=== PATIENT | male | born 1980 | race Caucasian/White ===

== ENCOUNTER 2016-09-16 22:02 | Emergency (ER) | payer BC ==
[~2016-09-16] VITALS: Ht 175.3 cm; Wt 98.4 kg
[2016-09-16 22:05] VITALS: Ht 175.3 cm; Wt 98.4 kg
[2016-09-16] MEDS ORDERED: HYDROMORPHONE 2mg/ml INJECTION IV ONE (22:15)
[2016-09-16] MEDS ORDERED: KETOROLAC 30mg/ml INJECTION IV ONE (22:15)
[2016-09-16] MEDS ORDERED: METOCLOPRAMIDE 10mg/2ml INJECTION IV ONE (22:15)
--- NOTE | 2016-09-16 22:16 | ERPDOC ---
Departure Disposition Decision Date: Sep 16, 2016 Disposition Decision Time: 23:10 Disposition: 01 DISCHARGED HOME, SELF-CARE Impression Impression Impression: Primary Impression: Ureteral stone Severity: Severe Condition: Improved Seen By: Physician only Referrals: MICHAEL CABALLERO MD (Family) Patient Instructions: Kidney Stones (ED) Problems/Meds/Labs Reviewed?: Yes Medications reviewed and manag: Yes Additional Instructions: Take ibuprofen up to 800 milligrams every 6-8 hours baseline pain control Reglan 10 mg one tablet every 6-8 hours Cardale 5 mg one to 2 tablets every 6-8 hours as needed for pain Follow up with Dr. Caballero if not improving in 3 days, return to ER for any significant worsening Follow up care ordered?: Yes Mental Status: Alert Scripts Hydrocodone/Acetaminophen (Cardale 5-325 Tablet) 5-325 Tablet 1-2 TAB PO QID Y for PAIN, #30 Prov: MARYELLEN CONNOR MD 09/16/16 Metoclopramide HCl (Reglan) 10 Mg Tablet 10 MG PO QID Y for n/flank pain, #30 TAB 0 Refills Prov: MARYELLEN CONNOR MD 09/16/16 HPI - Male General Chief Complaint: Flank Pain Stated Complaint: R SIDE PAIN Time Seen by Provider: 22:07 Source: patient Exam Limitations: no limitations HPI - Male Initial Comments Sudden onset right flank pain earlier today. Same as normal renal stones, but he normally passes them quickly. This time the pain has been persisting much longer than usual. No fever, mild nausea, and sever right flank pain. Duration: 6-12 hrs Severity/Quality: sharpness, stabbing Location: right flank Hx of Similar Symptoms: Yes Allergies: Coded Allergies: No Known Drug Allergies (Unverified Adverse Reaction, Unknown, 05/27/08) Past History Past Medical History Male: kidney stones Surgical History Denies Surgeries Social History Smoking Status: Never smoker Does patient use chewing tobac: No Second Hand Exposure: No Record Review Pertinent history updated: Yes Review of Systems Constitutional Constitutional: DENIES: appetite decrease, appetite increase, chills, dizziness , fever, weakness ENMT Ears: DENIES: pain Hearing: DENIES: hearing loss, tinnitus Balance: DENIES: vertigo Mouth/Throat: DENIES: change in swallowing, change in voice, hoarsness, painful swallowing, sore throat Cardiovascular Cardiac: DENIES: chest pain, dyspnea on exertion Rhythm/Rate: DENIES: irregular beat, palpitations, tachycardia Vascular: DENIES: pedal edema Pulmonary Respiratory: DENIES: cough, dyspnea, pleuritic chest pain GI Upper Abdomen: nausea, pain, DENIES: dysphagia, food intolerances, heartburn/ indigestion, hematemesis, vomiting Lower Abdomen: pain, DENIES: blood in stool, dexter-colored stools, constipation , diarrhea, melena, painful BM General: DENIES: burning, dysuria, frequency, pain, urgency Musculoskeletal General: DENIES: cramps, joint pain, joint swelling, pain, weakness Integumentary Skin: DENIES: rash, sores Neurological General: DENIES: headache, numbness, tingling, vertigo, weakness Psychiatric Psychiatric: DENIES: anxiety, depression, nervousness Physical Exam General General Nourishment: well nourished, well developed, appears stated age General Body Habitus: well groomed Vitals and Pain First Documented Vital Signs Date Time Temp Pulse Resp B/P Pulse Ox O2 Delivery O2 Flow Rate FiO2 09/16/16 22:05 99.5 86 22 133/74 98 Room Air Weight: Kilograms: Height (feet): Height (inches): Triage Pain Scale: RN VS reviewed by Provider: Yes Comments restless and cannot find position of comfort Normal Exams: Head: Normocephalic w/o trauma Eyes: Pupils are PERRLA w/ EOMI, No scleral icterus, irritation, or foreign bodies noted ENMT: No facial trauma, nasal exudates, pharyngeal erythema, or exudates are noted Neck: Full range of motion, without adenopathy, JVD, bruits or thyromegaly Chest/Resp: Clear all gibbs, with good airflow, and symmetry bilaterally CV: Regular rate and rhythm, without murmur or gallop, Pulses 2+ all extremities, capillary refill, <2 seconds all ext., no pedal edema noted Lymphatic: No lymphadenopathy, or lymphedema noted Musculoskeletal: No tenderness, or deformity noted, good range of motion, all extremities Integumentary: No rashes, hives, or bruising noted, hair and nails, without abnormality Neurologic: Patient is alert, and oriented, cranial nerves, motor/sensory/ cerebellar, exams w/o gross deficits, to observation Psychiatric: Patient exhibits, appropriate attention, emotion and affect Abdomen (brief) Abdominal Brief: FOUND: bowel normo active x4, soft, tender (moderate right flank tenderness. ) Progress Results/Orders Orders Procedure Category Date Status Time Iv Lock (Ed Only) EDM 09/16/16 Transmitted 22:12 Ketorolac (Toradol) PHA 09/16/16 Complete 22:15 Metoclopramide PHA 09/16/16 Complete (Reglan Inj) 22:15 Morphine Sulfate PHA 09/16/16 Complete (Morphine) 22:30 UA, LAB 09/16/16 Complete Dip&Micro(Complete) & 22:49 Metoclopramide PHA 09/16/16 Transmitted (Reglan) 23:15 Hydrocodone/Apap PHA 09/16/16 Transmitted 5/325 Prepack (Cardale 5 23:15 Lab Results Laboratory Tests Test 09/16/16 22:49 Urine Collection Type Cleancatch-midstream Urine Color Yellow Urine Turbidity Clear Urine pH 5.0 Urine Specific [place]ckley 1.020 Urine Protein Negative Urine Glucose (UA) Negative Urine Ketones Trace Urine Blood 1+ Urine Nitrite Negative Urine Bilirubin Negative Urine Urobilinogen 0.2EU/DL Urine Leukocyte Esterase Negative Urine RBC 1-3/HPF Urine WBC None seen/HPF Urine Bacteria None seen Urine Culture Indicated Cult not indicated Medications Current ED Medications Ketorolac Tromethamine (Toradol) 30 mg O ONCE IV Last administered on 22:31; Start 09/16/16 at 22:15; Stop 09/16/16 at 22:16; Status DC Metoclopramide HCl (REGLAN Inj) 10 mg O ONCE IV Last administered on 22:33; Start 09/16/16 at 22:15; Stop 09/16/16 at 22:16; Status DC Hydromorphone HCl (Dilaudid) 0.5 mg O ONCE IV ; Start 09/16/16 at 22:15; Stop 09/16/16 at 22:16; Status Cancel Morphine Sulfate (Morphine) 4 mg O ONCE IV Last administered on 09/16/16 22: 31; Start 09/16/16 at 22:30; Stop 09/16/16 at 22:31; Status DC Metoclopramide HCl (Reglan) 30 mg O ONCE PO ; Start 09/16/16 at 23:15; Stop 4/ 22/17 at 23:16 Acetaminophen/ Hydrocodone Bitart (NORCO 5 (PrePack)) 1 pack O ONCE SENT HOME ; Start 09/16/16 at 23:15; Stop 09/16/16 at 23:16 Progress Progress Patient given Toradol 30 mg, Reglan 10 mg, and Dilaudid 0.5 mg IV - to relief UA - normal amount of blood only Patient dispensed Reglan 10 mg 3 tablets, Cardale pack, prescriptions for the same MARYELLEN CONNOR MD Sep 16, 2016 22:16
[2016-09-16] MEDS ORDERED: LISI-625 PO (22:19)
[2016-09-16] MEDS ORDERED: MORPHINE SULFATE 4 MG SYRINGE IV ONE (22:30)
[2016-09-16 22:54] LABS: BLOOD, URINE 1+ (NEGATIVE); COLOR,URINE YELLOW (YELLOW); LEUKOCYTE ESTERASE ,URINE NEGATIVE (NEGATIVE); NITRITE,URINE NEGATIVE (NEGATIVE); UROBILINOGEN,URINE 0.2 EU/DL (NORMAL)
[2016-09-16 23:03] LABS: BACTERIA,URINE NONE SEEN (NEGATIVE); WBC,URINE NONE SEEN /HPF (0-5)
[2016-09-16] MEDS ORDERED: METO-230 PO (23:13)
[2016-09-16] MEDS ORDERED: HYDR-4246 PO (23:13)
[2016-09-16] MEDS ORDERED: HYDROCODONE/APAP 5/325 (PrePack) SENT HOME ONE (23:15)
[2016-09-16 23:26] VITALS: BP 124/74; PULSE 86; RESP 18; TEMP 98.5; O2SAT 98
--- NOTE | 2016-09-16 23:26 | NUR ---
DEPART PT GIVEN DI FOR KIDNEY STONES, NORCO, REGLAN, F/U. PREPAK/RX PROVIDED FOR NORCO AND REGLAN. PT VERBALIZES UNDERSTANDING OF DI, MEDS, AND F/U. QUESTIONS ASKED/ANSWERED - DENIES FURTHER QUESTIONS/NEEDS AT THIS TIME. PT REPORTS IMPROVEMENT IN PAIN AT THIS TIME. PERSONAL BELONGINGS GATHERED. IV SITE REMOVED. PT ESCORTED/AMBULATED TO ED EXIT - GAIT STABLE, NO SIGN OF DISTRESS AT THIS TIME.
== END 2016-09-16 23:26 | disposition home or self-care (01) ==
LOC: ED 22:02
DX: N20.1 Calculus of ureter (principal); Z87.442 Personal history of urinary calculi
CPT/HCPCS: 81001; 96374; 96375; 99284; J1885; J2765

== ENCOUNTER → 2016-09-18 | Outpatient (CLI) | payer BC ==
[~2016-09-18] MED LIST: HYDR-4246 PO; LISI-625 PO; METO-230 PO; OXYC1TAB11 PO; TAMS-1 PO
--- NOTE | 2016-09-18 17:01 | DI ---
Indication: ITS.REASON: N20.0 CALCULUS OF KIDNEY PROCEDURE: CT RENAL W/O CONTRAST: Encounter: Initial Comparison: 06/08/2010 Findings: The included portions of the lung bases demonstrate no focal opacity. No pleural effusion. Heart size is normal. There is moderate fatty infiltration of the liver. The spleen is not definitely enlarged. There is some fatty sparing in the central aspect of the caudate lobe. There is also some fatty sparing adjacent to the gallbladder fossa. The gallbladder is small and contracted. The adrenal glands are normal. The pancreas is homogeneous in density and uniform in contour. The right kidney is mildly hydronephrotic. There is a stone in the proximal right ureter at about the level of the UPJ that measures probably 7.3 mm. There is mild hydronephrosis of the right kidney. There are a few small nonobstructing urinary calculi in the left kidney in the upper pole. The abdominal aorta is nonaneurysmal without significant calcific atherosclerotic disease. Pelvis: No evidence for distal ureteral calculus. The urinary bladder is not distended. A normal appendix is not identified with certainty. No definite bony destructive process. IMPRESSION: 7.3 mm right proximal ureteric calculus with mild hydronephrosis. Tiny intrarenal renal calculus in the upper pole of the right kidney. No definite left-sided nephrolithiasis. Moderate steatosis of the liver parenchyma, similar to prior exam. .
== END ==
LOC: IMA 12:50
PROVIDERS: ATTEND Family Medicine
DX: N13.2 Hydronephrosis with renal and ureteral calculous obstruction (principal); K76.0 Fatty (change of) liver, not elsewhere classified

== ENCOUNTER 2016-09-19 02:00 | Emergency (ER) | payer BC ==
[~2016-09-19] VITALS: Ht 175.3 cm; Wt 96.9 kg
[~2016-09-19 02:00] MED LIST changes: -OXYC1TAB11 PO; -TAMS-1 PO
[2016-09-19 02:05] VITALS: Ht 175.3 cm; Wt 96.9 kg
--- OUTSIDE RECORDS SUMMARY | 2016-09-19 02:05 | XMS REPORT | Continuity of Care Document ---
Author Author [facility] Organization [facility] Address Unknown Phone Unavailable Support Name Relationship Address Phone MARYELLEN CONNOR MD Caregiver [address] [place] [address] Unavailable MICHAEL FELIX MD Caregiver [address] [place] [address] [place] [address] Unavailable TANVI WALL Next Of Kin [address] [place] [address] Insurance Providers Guarantor Nelson Wall Address [address] [place] [id number] Payer [facility] Policy Number [id number] Subscriber's Name Nelson Wall Relationship 18 Self Group Number [id number] Chief Complaint and Reason for Visit Chief Complaint Flank Pain Reason for Visit [id number] Problems Past Problems Medical Problem Onset Date Ureteral stone Unknown Medications Current Home Medications Medication Dose Units Route Directions Days Qty Instructions Start Date Hydrocodone/Acetaminophen (Wells 5-325 Tablet) 5-325 Tablet 1-2 Tab Oral Four Times Daily as needed for Pain 30 09/16/16 Lisinopril 5 Mg Tablet 5 Mg Oral Daily for Hypertension 09/16/16 Metoclopramide Hcl (Reglan) 10 Mg Tablet 10 Mg Oral Four Times Daily as needed for N/Flank Pain 30 Tablet 09/16/16 None 05/27/08 Social History Social History Problem Response Recorded Date/Time Onset Date Status Hx Alcohol Use No 09/16/2016 10:17pm Not Applicable Not Applicable Query Response Start Date Stop Date Smoking Status Never smoker Hospital Discharge Instructions No hospital discharge instructions. Plan of Care Discharge Date 09/16/16 11:26pm Disposition 01 DISCHARGED HOME, SELF-CARE Condition at Discharge Improved Instructions/Education Provided Kidney Stones (ED) Prescriptions See Medication Section Referrals MICHAEL FELIX MD Address: [address] [place] [address] [place] [address] Additional Instructions/Education Take ibuprofen up to 800 milligrams every 6- 8 hours baseline pain control Reglan 10 mg one tablet every 6-8 hours Wells 5 mg one to 2 tablets every 6-8 hours as needed for pain Follow up with Dr. Felix if not improving in 3 days, return to ER for any significant worsening Care Plan and Goals Physician Care Plan Problem: Ureteral stone Goal: Follow up with primary care provider Instructions: Take medications and follow care plan as discussed/written Take ibuprofen up to 800 milligrams every 6-8 hours baseline pain control Reglan 10 mg one tablet every 6-8 hours Wells 5 mg one to 2 tablets every 6-8 hours as needed for pain Follow up with Dr. Felix if not improving in 3 days, return to ER for any significant worsening Functional Status No functional status results. Allergies, Adverse Reactions, Alerts Allergen Type Severity Reaction Status Last Updated No Known Drug Allergies Adverse Reaction Unknown Active 05/27/08 Immunizations No immunization records. Vital Signs Acute Vital Signs Vital Response Date/Time Temperature (Fahrenheit) 98.5 deg F (96.8 - 99.1) 09/16/2016 11:26pm Temperature (Calculated Celsius) 36.33674 degrees C (36.0 - 37.3) 09/16/2016 11:26pm Pulse Rate (adult) 86 bpm (60 - 100) 09/16/2016 11:26pm Respiratory Rate 18 breaths/min (10 - 20) 09/16/2016 11:26pm O2 Sat by Pulse Oximetry 98 % (90 - 100) 09/16/2016 11:26pm Blood Pressure 124/74 mm Hg 09/16/2016 11:26pm Height (Feet) 5 feet 09/16/2016 10:05pm Height (Inches) 9.00 inches 09/16/2016 10:05pm Weight (Kilograms) 98.400 kg 09/16/2016 10:05pm Body Mass Index (BMI) 32.0 09/16/2016 10:05pm Results Laboratory Results Test Name Result Units Flags Reference Collection Date/Time Result Date/ Time Comments Urine Collection Type CLEANCATCH-MIDSTREAM 09/16/2016 10:49pm 09/16 10:54pm Urine Color YELLOW YELLOW 09/16/2016 10:49pm 09/16/2016 10:54pm Urine Turbidity CLEAR CLEAR 09/16/2016 10:49pm 09/16/2016 10:54pm Urine Specific Whitt 1.020 1.015-1.025 09/16/2016 10:49pm 2016 10:54pm Urine pH 5.0 5.0-8.0 09/16/2016 10:49pm 09/16/2016 10:54pm Urine Leukocyte Esterase NEGATIVE NEGATIVE 09/16/2016 10:49pm 2016 10:54pm Urine Nitrite NEGATIVE NEGATIVE 09/16/2016 10:49pm 09/16/2016 10: 54pm Urine Protein NEGATIVE NEGATIVE 09/16/2016 10:49pm 09/16/2016 10: 54pm Urine Glucose (UA) NEGATIVE NEGATIVE 09/16/2016 10:49pm 09/16/2016 10 :54pm Urine Ketones TRACE A NEGATIVE 09/16/2016 10:49pm 09/16/2016 10:54pm Urine Urobilinogen 0.2 EU/DL NORMAL 09/16/2016 10:49pm 09/16/2016 10: 54pm Urine Bilirubin NEGATIVE NEGATIVE 09/16/2016 10:49pm 09/16/2016 10: 54pm Urine Blood 1+ A NEGATIVE 09/16/2016 10:49pm 09/16/2016 10:54pm Urine WBC NONE SEEN /HPF 0-5 09/16/2016 10:49pm 09/16/2016 11:03pm Urine RBC 1-3 /HPF 0-3 09/16/2016 10:49pm 09/16/2016 11:03pm Urine Bacteria NONE SEEN NEGATIVE 09/16/2016 10:49pm 09/16/2016 11: 03pm Urine Culture Indicated CULT NOT INDICATED 09/16/2016 10:49pm 09/16 11:03pm Procedures No known history of procedures. Encounters Encounter Location Arrival/Admit Date Discharge/Depart Date Attending Provider Departed Emergency Room [facility] 09/16/16 10:02pm 09/16/16 11: 26pm MARYELLEN CONNOR MD Recent Diagnosis
--- NOTE | 2016-09-19 02:07 | ERPDOC ---
Departure Disposition Decision Date: Sep 19, 2016 Disposition Decision Time: 03:52 Disposition: 01 DISCHARGED HOME, SELF-CARE Impression Impression Impression: Primary Impression: Ureteral stone Additional Impression: Flank pain Severity: Severe Condition: Improved Seen By: Physician only Referrals: MICHAEL CABALLERO MD (Family) Patient Instructions: Kidney Stones (ED) Problems/Meds/Labs Reviewed?: Yes Medications reviewed and manag: Yes Additional Instructions: Flomax 0.4 mg tablets, take one tablet daily to keep ureter relaxed Continue Aleve 2 tablets twice daily Reglan 10 mg 4 times daily Paris as needed Call Dr. Caballero's office first thing this morning for urology referral Follow up care ordered?: Yes Mental Status: Alert Scripts Tamsulosin HCl (Flomax) 0.4 Mg Capsule 0.4 MG PO DAILY, #10 CAP Take 1 capsule, by mouth, one time a day at BEDTIME. Prov: MARYELLEN CONNOR MD 09/19/16 HPI - Male General Stated Complaint: KIDNEY PAIN Time Seen by Provider: 02:03 Source: patient Exam Limitations: no limitations HPI - Male Initial Comments Pt seen in ER two days ago for same sx. Diagnosed with right ureteral stone and had good results with IV meds. Taking Aleve, Reglan, and Paris at home to relief. CT done yesterday showed 7.3mm proximal stone with hydronephrosis. Tonight pain flared up and shifted down slightly. Unable to get pain control with home meds. Pt is to call Dr. Caballero's office in the morning to get Urologist appt. Occurred At: home Onset: Rapid Duration: 4-6 hrs Severity/Quality: sharpness, stabbing Radiation: right flank Associated Symptoms: lower back pain, nausea/vomiting, DENIES: abdominal pain, diaphoresis, dysuria, fever/chills, loss of bladder control, lumps, mass, nocturia, polyuria, swelling, syncope, urinary frequency Hx of Similar Symptoms: Yes Allergies: Coded Allergies: No Known Drug Allergies (Unverified Adverse Reaction, Unknown, 05/27/08) Past History Past Medical History Male: kidney stones Surgical History Denies Surgeries Social History Does patient use chewing tobac: No Second Hand Exposure: No Review of Systems Constitutional Constitutional: DENIES: appetite decrease, appetite increase, chills, dizziness , fever, weakness ENMT Ears: DENIES: pain Hearing: DENIES: hearing loss, tinnitus Balance: DENIES: vertigo Mouth/Throat: DENIES: change in swallowing, change in voice, hoarsness, painful swallowing, sore throat Cardiovascular Cardiac: DENIES: chest pain, dyspnea on exertion Rhythm/Rate: DENIES: irregular beat, palpitations, tachycardia Vascular: DENIES: pedal edema Pulmonary Respiratory: DENIES: cough, dyspnea, pleuritic chest pain GI Upper Abdomen: nausea, pain, DENIES: dysphagia, heartburn/indigestion, vomiting Lower Abdomen: pain, DENIES: blood in stool, constipation, diarrhea General: DENIES: burning, dysuria, frequency, pain, urgency Musculoskeletal General: DENIES: cramps, joint pain, joint swelling, pain, weakness Integumentary Skin: DENIES: rash, sores Neurological General: DENIES: headache, numbness, tingling, vertigo, weakness Physical Exam General General Nourishment: well nourished, well developed, appears stated age, no acute distress General Body Habitus: well groomed Vitals and Pain First Documented Vital Signs Date Time Temp Pulse Resp B/P Pulse Ox O2 Delivery O2 Flow Rate FiO2 09/19/16 02:54 16 09/19/16 02:58 68 160/91 92 Room Air Weight: Kilograms: Height (feet): 5 Height (inches): 9.00 Triage Pain Scale: RN VS reviewed by Provider: Yes Normal Exams: Head: Normocephalic w/o trauma Eyes: Pupils are PERRLA w/ EOMI, No scleral icterus, irritation, or foreign bodies noted ENMT: No facial trauma, nasal exudates, pharyngeal erythema, or exudates are noted Neck: Full range of motion, without adenopathy, JVD, bruits or thyromegaly Chest/Resp: Clear all gibbs, with good airflow, and symmetry bilaterally CV: Regular rate and rhythm, without murmur or gallop, Pulses 2+ all extremities, capillary refill, <2 seconds all ext., no pedal edema noted Lymphatic: No lymphadenopathy, or lymphedema noted Musculoskeletal: No tenderness, or deformity noted, good range of motion, all extremities Integumentary: No rashes, hives, or bruising noted, hair and nails, without abnormality Neurologic: Patient is alert, and oriented, cranial nerves, motor/sensory/ cerebellar, exams w/o gross deficits, to observation Psychiatric: Patient exhibits, appropriate attention, emotion and affect Abdomen (brief) Abdominal Brief: FOUND: bowel normo active x4, soft, tender (L posterior right flank tenderness, no guarding no rebounding), NOT FOUND: distended, hepatosplenomegaly Progress Results/Orders Orders Procedure Category Date Status Time Iv Lock (Ed Only) EDM 09/19/16 Transmitted 02:04 Ketorolac (Toradol) PHA 09/19/16 Complete 02:15 Metoclopramide PHA 09/19/16 Complete (Reglan Inj) 02:15 Normal Saline (Normal PHA 09/19/16 Complete Saline Iv) 02:15 Morphine Sulfate PHA 09/19/16 Complete (Morphine) 02:15 Fentanyl (Fentanyl) PHA 09/19/16 Complete 02:45 Tamsulosin (Flomax PHA 09/19/16 Complete 0.4 Mg) 03:30 Medications Current ED Medications Ketorolac Tromethamine (Toradol) 30 mg O ONCE IV Last administered on 02:41; Start 09/19/16 at 02:15; Stop 09/19/16 at 02:16; Status DC Metoclopramide HCl 10 mg 10 mg O ONCE IV ; Start 09/19/16 at 02:15; Stop at 02:16; Status DC Sodium Chloride (Normal Saline IV) 1,000 ml @ 0 mls/hr Q0M ONCE IV Last administered on 09/19/16 02:32; Start 09/19/16 at 02:15; Stop 09/19/16 at 02:16 ; Status DC Morphine Sulfate (Morphine) 4 mg O ONCE IV ; Start 09/19/16 at 02:15; Stop at 02:16; Status DC Fentanyl (Fentanyl) 100 mcg O ONCE IV Last administered on 09/19/16 02:54; Start 09/19/16 at 02:45; Stop 09/19/16 at 02:46; Status DC Tamsulosin HCl (FLOMAX 0.4 mg) 0.4 mg O ONCE PO ; Start 09/19/16 at 03:30; Stop 09/19/16 at 03:31; Status DC Progress Progress Patient given 1 L normal saline IV fluid bolus, Toradol 30 mg, one 10 mg, morphine 4 mg IV - minimal relief initially, patient given 100 g fentanyl to relief the patient remained pain-free for an additional hour, was given Flomax, and dismissed to follow-up with his primary care physician as well as take all of his medications previously prescribed. MARYELLEN CONNOR MD Sep 19, 2016 02:07
[2016-09-19] MEDS ORDERED: KETOROLAC 30mg/ml INJECTION IV ONE (02:15)
[2016-09-19] MEDS ORDERED: MORPHINE SULFATE 4 MG SYRINGE IV ONE (02:15)
[2016-09-19] MEDS ORDERED: NORMAL SALINE 1,000 ML IV ONE (02:15)
[2016-09-19] MEDS ORDERED: METOCLOPRAMIDE 10mg/2ml INJECTION IV ONE (02:15)
--- NOTE | 2016-09-19 02:19 | NUR ---
PROVIDER DR OCNNOR IN ROOM W/ PT.
[2016-09-19] MEDS ORDERED: FENTANYL 100mcg/2ml INJECTION IV ONE (02:45)
[2016-09-19] MEDS ORDERED: TAMSULOSIN 0.4 MG CAPSULE PO ONE (03:30)
[2016-09-19] MEDS ORDERED: TAMS-1 PO (03:54)
[2016-09-19 04:02] VITALS: BP 132/77; PULSE 65; RESP 18; TEMP 97.4; O2SAT 94
--- NOTE | 2016-09-19 04:02 | NUR ---
DISCHARGE PT GIVEN INSTRUCTION FOR CONT CARE OF KIDNEY STONE.PT VERBALIZED UNDERSTANDING AND SIGNED , PT LEFT ALERT AMBULATORY CONDITION IMPROVED W/ PAIN RELIEF TO 06/06. NO ACUTE DISTRESS.
[2016-09-20] MEDS ORDERED: OXYC1TAB11 PO (12:25)
== END 2016-09-19 04:02 | disposition home or self-care (01) ==
LOC: ED 02:00
DX: N13.2 Hydronephrosis with renal and ureteral calculous obstruction (principal); Z87.442 Personal history of urinary calculi
CPT/HCPCS: 96361; 96374; 96375; 99284; J1885; J2765; J3010; J7030

== ENCOUNTER 2016-09-20 11:53 | Day surgery (SDC) | payer BC ==
[~2016-09-20] VITALS: Ht 172.7 cm; Wt 97.7 kg
[2016-09-20] VITALS (16 sets, daily range): BP systolic 120–151; BP diastolic 62–89; PULSE 51–82; RESP 12–20; TEMP 96.9–98.4; O2SAT 92–100; Ht 172.7 cm; Wt 97.7 kg
[~2016-09-20 11:53] MED LIST changes: +TAMS-1 PO
--- OUTSIDE RECORDS SUMMARY | 2016-09-20 11:58 | XMS REPORT | Continuity of Care Document ---
Author Author [facility] Organization [facility] Address Unknown Phone Unavailable Support Name Relationship Address Phone MARYELLEN CONNOR MD Caregiver [address] [place] [address] Unavailable MICHAEL FELIX MD Caregiver [address] [place] [address] Unavailable ZAHIDA WALL Next Of Kin Unknown [phone] Insurance Providers Guarantor Nelson Wall Address [address] [place] [id number] Email DENIED 09-19-16 Payer [facility] Policy Number [id number] Subscriber's Name Nelson Wall Walker Relationship 18 Self Group Number [id number] Advance Directives Directive Response Recorded Date/Time Advanced Directives Type None 09/19/16 2:04am Chief Complaint and Reason for Visit Chief Complaint Flank Pain Reason for Visit [id number] Flank pain Problems Past Problems Medical Problem Onset Date Flank pain Unknown Ureteral stone Unknown Ureteral stone Unknown Medications Current Home Medications Medication Dose Units Route Directions Days Qty Instructions Start Date Hydrocodone/Acetaminophen ([place] 5-325 Tablet) 5-325 Tablet 1-2 Tab Oral Four Times Daily as needed for Pain 30 09/16/16 Lisinopril 5 Mg Tablet 5 Mg Oral Daily for Hypertension 09/16/16 Metoclopramide Hcl (Reglan) 10 Mg Tablet 10 Mg Oral Four Times Daily as needed for N/Flank Pain 30 Tablet 09/16/16 None 05/27/08 Tamsulosin Hcl (Flomax) 0.4 Mg Capsule 0.4 Mg Oral Daily 10 Capsule Take 1 capsule, by mouth, one time a day at BEDTIME. 09/19/16 Social History Social History Problem Response Recorded Date/Time Onset Date Status Chewing Tobacco Status Yes 09/19/2016 2:09am Not Applicable Not Applicable Hx Substance Use No 09/19/2016 2:09am Not Applicable Not Applicable Hx Alcohol Use No 09/19/2016 2:09am Not Applicable Not Applicable Query Response Start Date Stop Date Smoking Status Never smoker Hospital Discharge Instructions No hospital discharge instructions. Plan of Care Discharge Date 09/19/16 4:02am Disposition 01 DISCHARGED HOME, SELF-CARE Condition at Discharge Improved Instructions/Education Provided Kidney Stones (ED) Prescriptions See Medication Section Referrals MICHAEL FELIX MD Address: [address] [place] [address] [place] [address] Additional Instructions/Education Flomax 0.4 mg tablets, take one tablet daily to keep ureter relaxed Continue Aleve 2 tablets twice daily Reglan 10 mg 4 times daily [place] as needed Call Dr. Felix's office first thing this morning for urology referral Care Plan and Goals Physician Care Plan Problem: Ureteral stone, proximal, Goal: Follow up with primary care provider Instructions: Take medications and follow care plan as discussed/written Flomax 0.4 mg tablets, take one tablet daily to keep ureter relaxed Continue Aleve 2 tablets twice daily Reglan 10 mg 4 times daily [place] as needed Call Dr. Felix's office first thing this morning for urology referral Functional Status No functional status results. Allergies, Adverse Reactions, Alerts Allergen Type Severity Reaction Status Last Updated No Known Drug Allergies Adverse Reaction Unknown Active 05/27/08 Immunizations No immunization records. Vital Signs Acute Vital Signs Vital Response Date/Time Temperature (Fahrenheit) 97.4 deg F (96.8 - 99.1) 09/19/2016 4:02am Temperature (Calculated Celsius) 36.15954 degrees C (36.0 - 37.3) 09/19/2016 4:02am Pulse Rate (adult) 65 bpm (60 - 100) 09/19/2016 4:02am Respiratory Rate 18 breaths/min (10 - 20) 09/19/2016 4:02am O2 Sat by Pulse Oximetry 94 % (90 - 100) 09/19/2016 4:02am Blood Pressure 132/77 mm Hg 09/19/2016 4:02am Height (Feet) 5 feet 09/19/2016 2:05am Height (Inches) 9.00 inches 09/19/2016 2:05am Weight (Kilograms) 96.900 kg 09/19/2016 2:05am Body Mass Index (BMI) 31.0 09/19/2016 2:05am Results Laboratory Results Test Name Result Units Flags Reference Collection Date/Time Result Date/ Time Comments Urine Collection Type CLEANCATCH-MIDSTREAM 09/16/2016 10:49pm 09/16 10:54pm Urine Color YELLOW YELLOW 09/16/2016 10:49pm 09/16/2016 10:54pm Urine Turbidity CLEAR CLEAR 09/16/2016 10:49pm 09/16/2016 10:54pm Urine Specific [place] 1.020 1.015-1.025 09/16/2016 10:49pm 2016 10:54pm Urine [...] NOT INDICATED 09/16/2016 10:49pm 09/16 11:03pm Procedures Procedure Status Date Provider(s) Urinalysis auto w/scope Completed 09/16/16 Ther/proph/diag inj iv push Completed 09/16/16 Tx/pro/dx inj new drug addon Completed 09/16/16 Tx/pro/dx inj new drug addon Completed 09/16/16 Emergency dept visit Completed 09/16/16 515371"INJECTION, KETOROLAC TROMETHAMINE, PER 15 MG" Completed 09/16/16 090397"INJECTION, METOCLOPRAMIDE HCL, UP TO 10 MG" Completed 09/16/16 Encounters Encounter Location Arrival/Admit Date Discharge/Depart Date Attending Provider Departed Emergency Room [facility] 09/19/16 2:00am 09/19/16 4: 02am MARYELLEN CONNOR MD [facility] 09/18/16 12:50pm MICHAEL FELIX MD Departed Emergency Room [facility] 09/16/16 10:02pm 09/16/16 11: 26pm MARYELLEN CONNOR MD Recent Diagnosis
[2016-09-20] MEDS ORDERED: OXYC1TAB11 PO (12:25)
[2016-09-20 12:30] LABS: BASOPHILS % (AUTO) 0.4 % (0-2); EOSINOPHILS # (AUTO) 0.1 T/MM3 (0-0.5); EOSINOPHILS % (AUTO) 2.8 % (0-4); HCT - HEMATOCRIT 44.1 % (41-53); HGB - HEMOGLOBIN 15.7 GM/DL (13.5-17.5); IMMATURE GRANULOCYTE # (AUTO) 0.03 T/MM3 (0.00-0.03); IMMATURE GRANULOCYTE % (AUTO) 0.6 % (0.0-0.5); LYMPHOCYTES # (AUTO) 1.8 T/MM3 (1-4.8); LYMPHOCYTES % (AUTO) 35.6 % (23-45); MEAN CORPUSCULAR HGB 32.4 UUG (26-34); MEAN CORPUSCULAR HGB CONC(MCHC 35.6 GM/DL (31-37); MEAN CORPUSCULAR VOLUME 91.1 UM3 (80-100); MONOCYTES # (AUTO) 0.4 T/MM3 (0-0.8); MONOCYTES % (AUTO) 7.3 % (0-9.0); NEUTROPHILS #(AUTO)-ABSOLUTE 2.6 T/MM3 (1.8-7.7); NEUTROPHILS % (AUTO) 53.3 % (33-66); RED BLOOD COUNT 4.84 M/MM3 (4.50-5.90); WBC - WHITE BLOOD COUNT 4.9 T/MM3 (4.5-11.0)
[2016-09-20] MEDS ORDERED: LR 1,000 ML IV ONE (12:33)
[2016-09-20 12:40] LABS: ANION GAP 14 MEQ/L (5-15); BUN/CREATININE RATIO 14 RATIO (6-26); CALCIUM 9.4 MG/DL (8.4-10.2); CHLORIDE 105 MEQ/L (98-107); CO2 - CARBON DIOXIDE 26 MEQ/L (22-30); CREATININE 0.9 MG/DL (0.8-1.5); GLOMERULAR FILTRATION RATE 95; GLUCOSE 88 MG/DL (75-110); POTASSIUM 4.2 MEQ/L (3.6-5); SODIUM 145 MEQ/L (134-144)
[2016-09-20] MEDS ORDERED: CEFAZOLIN 1 GRAM INJECTION IV ONE (13:45)
--- NOTE | 2016-09-20 14:11 | ANESPREOP ---
Anesthesia Record Date and Time DATE: 09/20/16 TIME: 14:08 Pre-Op Diagnosis Right Ureteral Stone Proposed Surgical Procedure CYSTO/RETRO/LITHO NPO since: 0700 water Allergies: Coded Allergies: No Known Drug Allergies (Unverified Adverse Reaction, Unknown, 09/20/16) Ht/Wt/BMI Height: 5 ' 8.00 " Weight: 97.700 kg BMI: 32.8 kg/m2 Vital Signs Date Time Temp Pulse Resp B/P Pulse Ox O2 Delivery O2 Flow Rate FiO2 09/20/16 12:11 98.0 74 12 143/88 94 Room Air Medications Hydrocodone/Acetaminophen ([place] 5-325 Tablet) 5-325 Tablet, 1-2 TAB PO QID PRN for PAIN Last Taken: on 09/19/16 Lisinopril (Lisinopril) 5 Mg Tablet, 5 MG PO DAILY, (Reported) Last Taken: on 09/20/16 0600 Metoclopramide HCl (Reglan) 10 Mg Tablet, 10 MG PO QID PRN for n/flank pain Last Taken: on 09/19/16 Oxycodone HCl/Acetaminophen (Percocet 7.5-325 mg Tablet) 7.5-325 Tablet, 1-2 TAB PO Q6H PRN for PAIN, (Reported) Take 1 tablet, by mouth, every 4 hours as needed for pain. Last Taken: on 09/20/16 0600 Tamsulosin HCl (Flomax) 0.4 Mg Capsule, 0.4 MG PO DAILY Take 1 capsule, by mouth, one time a day at BEDTIME. Last Taken: on 09/20/16 0600 Currently on Beta Becky: No Medical/Surgical History Anesthesia PMH: Reports: *Hypertension (LISINOPRIL), Denies: *Diabetes, Anesthesia Reactions (NO AIRWAY ISSUES), Cancer, Clotting Problems, Glaucoma, Malignant Hyperthermia, Renal Disease, Sleep Apnea, Thyroid Disease Smoking Status: Never smoker Use Chewing Tobacco?: Yes (0700 ) Second Hand Exposure: No Substance Use Type: does not use Alcohol Intake: a few times a month Last Drink: days (ago) (5) Past Surgical History Orthopedic Surgeries: No Abdominal Surgeries: Yes - APPY Genitourinary Surgeries: Cardiac Surgeries: Endocrine Surgeries: Reproductive Surgeries: Neurological Surgeries: Ear Surgeries: Nose Surgeries: Throat Surgeries: Other Surgeries: No Anesthesia Adverse Reactions: FOUND none Family Hx of Anesthesia Advers: none Hx of Motion Sickness: No Pertinent Findings Laboratory Tests 09/20/16 12:23 EKG Rhythm: Sinus Rhythm Physical Exam Respiratory: Bilat breath sounds equal, Lungs clear Cardiovascular: FOUND Regular rate, rhythm, FOUND No murmur Airway Assessment Mallampati Score: I TMD: 3 Fingerbreadths Neck Extension: Good Overall Assessment: No Airway Concerns ASA: 2 Plan Anesthesia Plan: TIVA, LMA Discussion Discussed risks/options/alternatives of anesthesia and questions answered. Patient consents. Nursing pain assessment noted. Present: Parent Attestation Statement Prior to the delivery of any anesthetic medication, I examined the patient, developed the plan, obtained the patient's consent and discussed the risk and benefits of the procedure with the patient/guardian. CHANDRAKANT RAMÍREZ CRNA Sep 20, 2016 14:11
[2016-09-20] MEDS ORDERED: IOHEXOL 300 MG/ML 50ml INJECTION ONE (14:41)
[2016-09-20] MEDS ORDERED: FENTANYL 250mcg/5ml INJECTION ONE (14:42)
[2016-09-20] MEDS ORDERED: NORMAL SALINE 1,000 ML IV SCH (14:54)
[2016-09-20] MEDS ORDERED: LIDOCAINE (2%) 100 MG/5 ML PF SYRINGE IV ONE (14:56)
[2016-09-20] MEDS ORDERED: MORPHINE SULFATE 4 MG SYRINGE IV PRN (15:00)
[2016-09-20] MEDS ORDERED: HYDROCODONE/APAP 5 mg/325 mg TABLET PO PRN (15:00)
[2016-09-20] MEDS ORDERED: UROGESIC-BLUE TABLET PO ONE (15:00)
[2016-09-20] MEDS ORDERED: TAMSULOSIN 0.4 MG CAPSULE PO ONE (15:00)
[2016-09-20] MEDS ORDERED: ONDANSETRON 4mg/2ml INJECTION IV PRN ×2 (15:00→16:15)
[2016-09-20] MEDS ORDERED: KETOROLAC 30mg/ml INJECTION ONE (15:50)
[2016-09-20] MEDS ORDERED: ONDANSETRON 4mg/2ml INJECTION ONE (15:51)
[2016-09-20] MEDS ORDERED: SUGAMMADEX 200 MG/2 ML INJECTION IV ONE (15:53)
[2016-09-20] MEDS ORDERED: BELLADONNA-OPIUM 16.2-60mg SUPP RECTALLY ONE (15:53)
--- NOTE | 2016-09-20 15:55 | PDOPERATE ---
Operative Report Date of Operation 09/20/16 Side: Right Preoperative Diagnosis: other (ureter stone) Postoperative Diagnosis Same as preoperative diagnosis. Operation/Procedure: other (right eswl, right ureteroscopy, laser/basket of stone, right stent) Surgeon Adrien Corbett MD Chemical Technician RALEIGH Mckeon Complications None. Anesthesia Plan: GETA Estimated Blood Loss See Anesthesia Record. Fluids Please See Anesthesia Record. Description of Operation Mr. Wall and his [] were identified and marked in the the preoperative holding area. He was then brought back to the operating suite and proper anesthesia was administered. He was then positioned [] on the operating table. The [] extremity was then prepped and draped in my normal sterile fashion. Timeout was performed with all operating room personnel. KADEN GASCA MD Sep 20, 2016 15:55
[2016-09-20] MEDS ORDERED: HYDROMORPHONE 2mg/ml INJECTION IV PRN ×2 (16:15→16:30)
[2016-09-20] MEDS ORDERED: METOCLOPRAMIDE 10mg/2ml INJECTION IV PRN (16:15)
--- NOTE | 2016-09-20 16:17 | ANESPO ---
Post-Op Note Date 09/20/16 Time: 16:16 Status Pt Participated in Evaluation: Pt participated in person Vital Signs Date Time Temp Pulse Resp B/P Pulse Ox O2 Delivery O2 Flow Rate FiO2 09/20/16 12:11 98.0 74 12 143/88 94 Room Air Respiratory Function: Airway patent Telemetry Pattern: SR Mental Status: Alert/oriented Pain Level Intensity: 8 Hydration: IV infusing, Nausea Complications during Recovery None apparent Follow-Up Instructions Instructions Per Surgeon JUSTO MOSCOSO CRNA Sep 20, 2016 16:16
--- NOTE | 2016-09-21 16:11 | OPNOTEF ---
DATE OF OPERATION 09/20/2016 PREOPERATIVE DIAGNOSIS Right ureter stone. POSTOPERATIVE DIAGNOSIS Right ureter stone. PROCEDURE PERFORMED 1. Right extracorporeal shock-wave lithotripsy. 2. Cystoscopy with ureteroscopy and laser and basketing of stone. 3. Right stent placement. SURGEON Albaro Friend MD INDICATION FOR PROCEDURE Patient is a 35-year-old male. He has a history of recurrent stones. He has always been able to pass them, however he has had persistent right renal colic and CT scan showed about a 7.5 mm stone in his proximal right ureter. Plan today is to do shock-wave lithotripsy versus ureteroscopy to clear the stone. DESCRIPTION OF PROCEDURE He was taken back to the OR, placed under anesthesia, moved to the lithotripsy bed. Biplanar fluoroscopy was used to focus on the stone. I started shocking the stone at 1.5 shocks/second. I started with low energy, I increased it up to energy level of 6. After 1500 shocks, it did not seem like the stone was break up, so I wanted to try to manipulate it endoscopically. His penis was prepped and draped. A #22 Tristanian scope was passed per the urethra. The urethra was normal. The bladder was drained. The ureters were in a normal location. I cannulated that right ureter with a #5 Tristanian catheter. I slowly advanced a sensor wire up to that kidney. The stone was somewhat lodged in the wall of the ureter there. It was not easy to manipulate. I tried to flush it back in the kidney but was not having much luck so I went ahead and just left the wire in place. I tried to pass a flexible ureteroscope up that wire but the distal ureteral right above the orifice was too narrow so I had to use a little dilation. I used a #12 Tristanian balloon. I gently dilated this open and then I was able to pass the flexible ureteroscope up to the level of the stone. As I got up to the level of the stone, the stone did flush back. It had broken up a little bit; there were some small fragments floating around but the main portion of the stone was intact. It migrated to a mid-pole calyx where I broke it using a Holmium laser into several small pieces. I retrieved some of these using a Zero-Tip basket. The rest of the fragments looked very small, 1 mm or less in size. I removed the ureteroscope. I passed a #6 x 24 cm double-J stent. It curled nicely in the renal pelvis proximally. The distal end had a good curl in the bladder. The bladder was drained. That was the end of the case. DISPOSITION I will see him back in one week. I will do a follow up x-ray in my office. If it looks good, will do cystoscopy and stent removal. ANGELINA
== END 2016-09-20 18:23 | disposition home or self-care (01) ==
LOC: SCU 11:53
PROVIDERS: ATTEND Surgery
DX: N20.1 Calculus of ureter (principal); I10 Essential (primary) hypertension; Z79.899 Other long term (current) drug therapy; Z87.442 Personal history of urinary calculi
CPT/HCPCS: 50590; 80048; 82365; 85025; C2617; J0690; J1170; J1885; J2405; J3010; J7120; Q9967